=== PATIENT | female | born 1975 | race Hispanic/Latino ===

== ENCOUNTER 2016-10-11 09:31 | Emergency (ER) ==
--- NOTE | 2016-10-11 11:02 | ED EKG INTERP ---
EKG Interpretation - EKG Time of EKG reading by physician:: 09:41 EKG Read and Signed by:: Sincere Multani EKG Interpretation (*Must complete 3 of following elements*): Normal Rate: 73 Rhythm: Normal sinus [place]inn[place]: normal QRS: normal PA Interval: normal ST Wave: normal
[2016-10-11] MEDS ORDERED: G.I. COCKTAIL PO ONE (11:51)
[2016-10-11] MEDS ORDERED: ZOFRAN ODT PO ONE (11:52)
--- NOTE | 2016-10-11 12:03 | PROVIDER DOCUMENTATION ---
HPI-Abdominal Pain/GI Problem - General Chief Complaint: Shortness of Breath Stated Complaint: SOB/DIABETIC Time Seen by Provider: 10/11/16 10:32 Source: patient ([facility]) Allergies/Adverse Reactions: Patient Allergies Allergy/AdvReac Type Severity Reaction Status Date / Time No Known Allergies Allergy Verified 10/11/16 11:45 Home Medications: Metformin HCl [Metformin HCl ER] 1,000 mg PO BID 10/11/16 Omeprazole 40 mg PO QAM 10/11/16 #103/Iron Fumarate/FA [ Tablet] 1 each PO 10/11/16 - History of Present Illness-ABD Nature of Presenting Problems: 40 yo F presents to ED with chief complaint of nonradiating epigastric pain and nausea. Pt also reports bilateral lower extremity pain. Pt is currently in the first trimester of her 5th . Pt has surgical hx of 2 C-sections. Pt denies other medical hx. Upon arrival to ED pt is alert and in no apparent distress. Pt appears nontoxic. [facility] service was used in this pt's care. Abdominal Pain Onset Location: reports: epigastric Pain Radiation: reports: no radiation Quality of Pain: reports: indigestion Severity in ED: reports: moderate Onset/Duration: reports: abrupt Timing: reports: still present Activities at Onset: reports: none Associated Symptoms: reports: vomiting Review of Systems - Adult - REVIEW OF SYSTEMS - ADULT Constitutional: reports: no symptoms reported. denies: chills, fever Eyes: reports: no symptoms reported. denies: discharge, blurred vision Ears, Nose, Mouth & Throat: reports: no symptoms reported. denies: ear pain, nose pain Cardiovascular: reports: no symptoms reported. denies: chest pain, heart murmur Respiratory: reports: no symptoms reported. denies: cough, dyspnea on exertion Gastrointestinal: reports: abdominal pain, nausea Genitourinary: reports: no symptoms reported. denies: dysuria, flank pain Musculoskeletal: reports: no symptoms reported. denies: bone pain, frequent leg cramps Integumentary: reports: no symptoms reported. denies: hives, itching Neurological: reports: no symptoms reported. denies: ataxia, dizziness/vertigo Psychiatric: reports: no symptoms reported. denies: anxiety, emotional problems Endocrine: reports: no symptoms reported. denies: cold intolerance, heat intolerance Hematologic/Lymphatic: reports: no symptoms reported. denies: blood clots, low blood count Allergic/Immunologic: reports: no symptoms reported. denies: allergic reactions , eczema All Other Systems: Reviewed and Negative Past History - Adult - PAST MEDICAL HISTORY-ADULT Review of Records: reports: Old Records Reviewed, Nursing Assessment Review, Medications Reviewed - IMMUNIZATION STATUS Childhood Immunizations: See Nurse Assessment Flu Vaccine: See Nurse Assessment Physical Exam-General - PHYSICAL EXAM-ADULT Initial Vital Signs Reviewed: Yes - CONSTITUTIONAL General Appearance: appears well, alert, no apparent distress - EYES Eyes: PERRL/EOMI, pink conjunctivae - HEAD, EARS, NOSE, MOUTH & THROAT HENMT: normocephalic/atraumatic, moist mucous membranes - NECK Neck: non-tender, full range of motion - RESPIRATORY Respiratory: chest non-tender, no accessory muscle use - CARDIOVASCULAR Cardiovascular: normal peripheral pulses, regular rate, rhythm - GASTROINTESTINAL (ABDOMEN) Abdominal Exam: normal bowel sounds, non tender, soft - LYMPHATIC Lymphatic: no adenopathy - MUSCULOSKELETAL Back Exam: normal inspection, no vertebral tenderness Extremity: normal range of motion, non-tender - SKIN Integumentary: normal color, normal turgor - NEUROLOGIC Neurologic: grossly normal, no motor/sensory deficits - PSYCHIATRIC Psych/Mental Status: normal mood/affect, normal thought content, normal thought process, oriented x 3 Progress - PLAN OF CARE/RESULTS Progress/Plan/Lab Results: Vital Signs - 24 hr 10/11/16 10/11/16 09:46 12:54 Temperature 98.0 F 98 F Pulse Rate 76 63 Respiratory 16 18 Rate Blood Pressure 119/67 116/76 O2 Sat by Pulse 100 100 Oximetry Orders Category Date Time Status CBC WITH ELECTRONIC DIFF [HEME] Stat Lab 10/11/16 11:25 Completed TEST-URINE [PREG] Stat Lab 10/11/16 11:25 Completed Lido/Avitia Alk/Al&mg Hydrox [G.i. Cocktail] Med 10/11/16 11:51 Discontinued 30 ml PO NOW ONE Ondansetron Odt [Zofran Odt] Med 10/11/16 11:52 Discontinued 4 mg PO NOW ONE EKG [EKG] Stat Ther 10/11/16 09:38 Ordered Laboratory Tests 10/11/16 10/11/16 11:25 11:25 WBC 8.31 RBC 3.62 L Hgb 9.9 L Hct 30.8 L MCV 85.1 MCH 27.3 MCHC 32.1 L RDW Std Deviation 14.7 H Plt Count 326 MPV 10.0 Neut % (Auto) 64.2 Lymph % (Auto) 21.2 Ballard % (Auto) 11.1 H Eos % (Auto) 3.4 Baso % (Auto) 0.1 Neut # (Auto) 5.34 Lymph # (Auto) 1.76 Ballard # (Auto) 0.92 H Eos # (Auto) 0.28 Baso # (Auto) 0.01 Urine Test POSITIVE Departure - Departure Time of Disposition Order: 13:28 DIAGNOSIS: Hyperemesis arising during GERD (gastroesophageal reflux disease) Qualifiers: Esophagitis presence: esophagitis presence not specified Qualified Code(s): K21.9 - Gastro-esophageal reflux disease without esophagitis Disposition: HOME 01 Certified Medical Emergency: Emergent Condition: Good Additional Instructions: ED Follow Up Instructions: You have been treated by a care provider in the Emergency Department. These instructions are being provided to you so you can have an understanding of how to care for yourself upon discharge. Upon discharge from the Emergency Department, you are responsible for making arrangements for follow-up care by a physician of your choice. Take all prescribed medications as directed. Return to the Emergency Department immediately for any new or worsening symptoms. You may call the Physician Referral phone number at [phone] to obtain a list of Physicians who are taking new patients. Referrals: Rin Bryan CRNP [Primary Care Provider] - Attestation - Scribe Verification/Attestation Scribe:: Alejandra Mercado Acting as Scribe for:: Sincere Multani Scribe documention review:: This chart was documented by a scribe and accurately reflects the service the provider performed and the decisions made by the provider. - Physician/ Mid-level Attestation Patient care was provided by Mid-level provider (FUNDER/PA):: No
[2016-10-11 13:00] LABS: MANUAL DIFF NEEDED? NO
[2016-10-11 13:21] LABS: BASO% 0.1 % (0.0-0.8); EOS# 0.28 X1000 (0.0-0.7); EOS% 3.4 % (0.0-10.0); HEMATOCRIT 30.8 % (37.0-47.0); HEMOGLOBIN 9.9 g/dL (12.0-16.0); LYMPH# 1.76 X1000 (1.2-3.4); LYMPH% 21.2 % (20.5-51.1); MCH 27.3 PG (27-31); MCHC 32.1 g/dL (33-37); MCV 85.1 FL (81-99); MONO# 0.92 X1000 (0.11-0.59); MONO% 11.1 % (1.7-9.3); NEUT% 64.2 % (42.2-75.2); PLT 326 X1000 (130-400); RBC 3.62 XMIL (4.2-5.4)
[2016-10-11 13:49] VITALS: BP 110/72
--- NOTE | 2016-10-12 06:07 | EKG Report ---
Test Performed on : 10/11/2016 09:41:14 AM Test Reason : cp/sob Blood Pressure : / mmHG Vent. Rate : 073 BPM Atrial Rate : 073 BPM P-R Int : 158 ms QRS Dur : 078 ms QT Int : 400 ms P-R-T Axes : 039 018 -08 degrees QTc Int : 440 ms Normal sinus rhythm. Normal ECG No previous ECGs available Unconfirmed Result
== END 2016-10-11 13:59 | disposition home or self-care (01) ==
LOC: ED 09:31
DX: O21.9 Vomiting of pregnancy, unspecified (principal); O26.891 Other specified pregnancy related conditions, first trimester; K21.9 Gastro-esophageal reflux disease without esophagitis; R10.13 Epigastric pain; R11.0 Nausea; M79.605 Pain in left leg; M79.604 Pain in right leg; R06.02 Shortness of breath; Z79.899 Other long term (current) drug therapy; Z3A.00 Weeks of gestation of pregnancy not specified
CPT/HCPCS: 81025; 82948; 85025; 93005; 99284

== ENCOUNTER 2017-04-19 05:08 | Inpatient (IN) ==
--- NOTE | 2017-04-19 02:14 | HISTORY AND PHYSICAL ---
REASON FOR ADMISSION: She is to undergo a repeat delivery on the morning of April 19 with bilateral tubal ligation at 37 weeks due to diabetes and oligohydramnios. OTHER DIAGNOSES: 1. Advanced maternal age. 2. Gambian speaking. HISTORY: Ms. Faulkner is a 41-year-old 5, para 3-1-0-4, at 37 weeks, who is being followed for hypertension. 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 On ultrasound she was found to have oligohydramnios, so decision is made to proceed with repeat delivery and tubal ligation. PAST MEDICAL HISTORY: Diabetes. PAST SURGICAL HISTORY: delivery x2. ALLERGIES: No known drug allergies. MEDICATIONS: vitamins and iron. SOCIAL HISTORY: She denies tobacco, alcohol or drug use. PHYSICAL EXAMINATION: VITAL SIGNS: Stable. She is afebrile. GENERAL: Alert. Cooperative. Does not appear to be in any distress. NECK: Supple. LUNGS: Clear. HEART: Regular sinus rhythm. ABDOMEN: Gravid. PELVIC: Deferred. MUSCULOSKELETAL: No edema of extremities. ASSESSMENT: 1. Intrauterine at 37 weeks. 2. Oligohydramnios. 3. Diabetes. 4. Advanced maternal age. 5. Gambian speaking. PLAN: Repeat delivery and tubal ligation. cc: MD Saul Wallis MD
[2017-04-19] MEDS ORDERED: LR 1,000 ML IV SCH (05:10)
[2017-04-19] MEDS ORDERED: KEFZOL 1 GM/D5W 1 GM/50 ML IVPB IV PRN (05:10)
[2017-04-19] MEDS ORDERED: BICITRA PO ONE (05:30)
[2017-04-19] MEDS ORDERED: SODIUM CHLORIDE 0.9% INJ ONE (05:30)
[2017-04-19] MEDS ORDERED: PEPCID IV ONE (05:30)
[2017-04-19 06:07] LABS: MANUAL DIFF NEEDED? NO
[2017-04-19 06:15] LABS: BASO% 0.3 % (0.0-0.8); EOS# 0.11 X1000 (0.0-0.7); EOS% 1.6 % (0.0-10.0); HEMATOCRIT 31.7 % (37.0-47.0); HEMOGLOBIN 10.5 g/dL (12.0-16.0); IMM GRAN# 0.03 X1000 (0.0-0.04); IMM GRAN% 0.4 % (0.0-0.5); LYMPH# 1.78 X1000 (1.2-3.4); LYMPH% 25.1 % (20.5-51.1); MCH 29.8 PG (27-31); MCHC 33.1 g/dL (33-37); MCV 90.1 FL (81-99); MONO# 0.71 X1000 (0.11-0.59); MPV 10.4 FL (7.4-10.4); NEUT% 62.6 % (42.2-75.2); PLT 223 X1000 (130-400); RBC 3.52 XMIL (4.2-5.4)
[2017-04-19] MEDS ORDERED: PITOCIN 20 UNITS/LR 20 UNITS/1,000 ML IV.SOLN ONE (06:31)
[2017-04-19] MEDS ORDERED: DURAMORPH ONE (06:31)
[2017-04-19] MEDS ORDERED: PITOCIN ONE (06:32)
[2017-04-19] MEDS ORDERED: ZOFRAN ONE (07:21)
[2017-04-19] MEDS: TORADOL IV SCH ×3 (08:00→21:14)
[2017-04-19] MEDS ORDERED: TORADOL ONE (08:02)
[2017-04-19] MEDS ORDERED: BENADRYL IV PRN (08:06)
[2017-04-19] MEDS ORDERED: NARCAN INJ PRN (08:06)
[2017-04-19] MEDS ORDERED: ZOFRAN IV PRN ×2 (08:06)
[2017-04-19] MEDS ORDERED: ZOFRAN ODT PO PRN (08:06)
[2017-04-19] MEDS ORDERED: TORADOL IV PRN (08:07)
[2017-04-19] MEDS ORDERED: MORPHINE IV PRN (08:07)
[2017-04-19] MEDS ORDERED: CYTOTEC PO PRN (08:32)
[2017-04-19] MEDS ORDERED: HYDROXYZINE PO PRN (08:32)
[2017-04-19] MEDS ORDERED: M-M-R II VACCINE SUBQ ONE (08:32)
[2017-04-19] MEDS ORDERED: PHENERGAN IM PRN (08:32)
[2017-04-19] MEDS ORDERED: MYLICON PO PRN (08:32)
[2017-04-19] MEDS ORDERED: BOOSTRIX VACCINE IM ONE (08:32)
[2017-04-19] MEDS ORDERED: DEMEROL IM PRN (08:32)
[2017-04-19] MEDS ORDERED: DEMEROL PO PRN ×2 (08:32)
[2017-04-19] MEDS ORDERED: HYDROXYZINE IM PRN (08:32)
[2017-04-19] MEDS ORDERED: AMBIEN PO PRN (08:32)
[2017-04-19] MEDS ORDERED: PERCOCET-5 PO PRN (08:32)
[2017-04-19] MEDS ORDERED: PITOCIN IM PRN (08:32)
[2017-04-19] MEDS ORDERED: DULCOLAX PR PRN (08:32)
[2017-04-19] MEDS ORDERED: PITOCIN 20 UNITS/LR 20 UNITS/1,000 ML IV.SOLN IV ONE (08:32)
[2017-04-19] MEDS: TRANDATE PO SCH ×2 (09:27→21:15)
[2017-04-19] MEDS: HEMOCYTE PLUS CAPSULE PO SCH (10:20)
[2017-04-19] MEDS: MYLICON PO SCH ×4 (10:20→21:15)
--- NOTE | 2017-04-19 12:04 | OPERATIVE NOTE ---
PROCEDURE DATE: 04/19/2017 PREOPERATIVE DIAGNOSES: 1. Intrauterine at 37 weeks. 2. Advanced maternal age. 3. Diabetes. 4. Hypertension. 5. Oligohydramnios. 6. Intrauterine growth restriction. POSTOPERATIVE DIAGNOSES: 1. Intrauterine at 37 weeks. 2. Advanced maternal age. 3. Diabetes. 4. Hypertension. 5. Oligohydramnios. 6. Intrauterine growth restriction. PROCEDURE PERFORMED: Low transverse section with tubal ligation. PHYSICIAN/SURGEON: Saul Garcia MD ANESTHESIA: Epidural, Dr. Johnson. FINDINGS: A viable female infant, 4 pounds 11 ounces, 9 and 10 scores. SPECIMENS: Bilateral sections of tubes, both fimbriated ends. ESTIMATED BLOOD LOSS: 500 mL, none replaced. DRAINS: Rowley catheter. INDICATIONS FOR PROCEDURE: Please refer to Ms. Faulkner' records and [facility] and P. PROCEDURE IN DETAIL: She appropriately consented and was brought to the operating room. Spinal anesthesia was administered. She was then placed supine on the table and prepped and draped in a sterile manner. Adequate anesthesia was verified. Incision made in lower abdomen across the old scar, the subcuticular tissue to the fascia in the midline, cut on the fascia and extended laterally. Midline entered. Muscle pulled to the side. Bladder blade was placed. Hysterotomy incision in the lower uterine segment, extended by pulling cephalad and caudad. Membranes ruptured, clear. Infant delivered without difficulty. Cord doubly clamped and cut. Care of taken over by nursery personnel. Cord blood was obtained, three vessels. The uterus massaged to deliver the placenta. Uterus exteriorized, wiped free of clots and remaining placental tissue. Hysterotomy incision closed in a single layer of 1 chromic running and locking. The tubal was done by a clamping off fimbriated end, cutting and ligating a pedicle. Good hemostasis on both. The uterus was put back into the abdomen. Irrigation done. No bleeding noted. Peritoneum reapproximated with chromic. Muscle plicated in the midline with same chromic interrupted stitches. Fascia closed with 0 Vicryl interrupted in a running locking stitch. Subcutaneous tissue irrigated and made hemostatic by electrocautery. Caleb's fascia closed with 3-0 chromic. Skin closed with 4-0 Biosyn subcuticular stitch. All counts correct. Expect routine . cc: Saul Garcia MD
[2017-04-19] MEDS: PITOCIN 10 UNITS/LR 10 UNIT/1,000 ML IV.SOLN IV SCH ×2 (14:38→23:02)
[2017-04-19] MEDS: PERICOLACE PO SCH (21:15)
[2017-04-20] MEDS: TORADOL IV SCH (02:59)
[2017-04-20 06:17] LABS: MANUAL DIFF NEEDED? NO
[2017-04-20 06:21] LABS: BASO% 0.1 % (0.0-0.8); EOS# 0.05 X1000 (0.0-0.7); EOS% 0.5 % (0.0-10.0); HEMATOCRIT 32.3 % (37.0-47.0); HEMOGLOBIN 10.4 g/dL (12.0-16.0); IMM GRAN# 0.03 X1000 (0.0-0.04); IMM GRAN% 0.3 % (0.0-0.5); LYMPH# 1.41 X1000 (1.2-3.4); LYMPH% 13.9 % (20.5-51.1); MCH 29.1 PG (27-31); MCHC 32.2 g/dL (33-37); MCV 90.5 FL (81-99); MONO# 0.55 X1000 (0.11-0.59); MONO% 5.4 % (1.7-9.3); MPV 10.2 FL (7.4-10.4); NEUT% 79.8 % (42.2-75.2); PLT 226 X1000 (130-400); RBC 3.57 XMIL (4.2-5.4)
[2017-04-20] MEDS ORDERED: LR 1,000 ML IV SCH (08:29)
[2017-04-20] MEDS: PERCOCET-10 PO PRN (10:18)
[2017-04-20] MEDS: TRANDATE PO SCH ×2 (10:18→21:26)
[2017-04-20] MEDS: HEMOCYTE PLUS CAPSULE PO SCH (10:19)
[2017-04-20] MEDS: MYLICON PO SCH ×4 (10:19→21:26)
[2017-04-20] MEDS: MOTRIN PO PRN ×2 (10:19→20:02)
[2017-04-20] MEDS: PERICOLACE PO SCH (21:26)
[2017-04-21] MEDS: PERCOCET-10 PO PRN ×2 (07:19→16:16)
[2017-04-21] MEDS: MOTRIN PO PRN ×2 (07:20→16:15)
[2017-04-21] MEDS: MYLICON PO SCH ×4 (08:15→20:49)
[2017-04-21] MEDS: HEMOCYTE PLUS CAPSULE PO SCH (08:15)
[2017-04-21] MEDS: TRANDATE PO SCH ×3 (08:16→20:48)
[2017-04-21] MEDS: PERICOLACE PO SCH (20:48)
[2017-04-22] MEDS: MYLICON PO SCH (08:43)
[2017-04-22] MEDS: PERCOCET-10 PO PRN (08:43)
[2017-04-22] MEDS: TRANDATE PO SCH (08:43)
[2017-04-22] MEDS: MOTRIN PO PRN (08:43)
[2017-04-22] MEDS: HEMOCYTE PLUS CAPSULE PO SCH (08:43)
[2017-04-22 11:01] VITALS: BP 129/64
== END 2017-04-22 13:30 | disposition home or self-care (01) ==
LOC: P.LD 05:08 → MERGE 05:08 → EDSTATUS 05-01 10:46
PROVIDERS: ADMIT Obstetrics & Gynecology; ATTEND Obstetrics & Gynecology